=== PATIENT | female | born 1995 | race Hispanic/Latino ===

== ENCOUNTER 2017-07-15 22:24 | Outpatient (CLI) | payer BC, MEDICAID ==
[2017-07-15 22:57] VITALS: BP 137/88
== END 2017-07-15 23:26 | disposition home or self-care (01) ==
LOC: TRG 22:24
PROVIDERS: ATTEND Obstetrics & Gynecology
DX: O99.333 Smoking (tobacco) complicating pregnancy, third trimester (principal); O47.1 False labor at or after 37 completed weeks of gestation; Z3A.38 38 weeks gestation of pregnancy
CPT/HCPCS: 59025

== ENCOUNTER 2017-07-25 17:35 | Outpatient (CLI) | payer BC, MEDICAID ==
--- NOTE | 2017-07-25 20:59 | Ultrasound Report ---
FINAL REPORT PROCEDURE: US OB LIMITED TECHNIQUE: Real-time limited sonographic examination was performed for evaluation of position, heartbeat, fluid volume for fetus with image documentation. CPT 67682 HISTORY: Leaking fluid. COMPARISON: No prior studies are available for comparison. FINDINGS: MATERNAL LMP: 10/18/2016. Clinical age: 40 weeks 0 days. NATALEE of 07/25/2017. Uterus: Within normal limits . Cervix length: Not measured by technologist. FETUS IUP: Single living intrauterine . Position: Cephalic. Amniotic fluid volume: 17.3 cm. Heart rate and rhythm: 156 BPM, Regular . anatomic survey: Normal . IMPRESSION: Limited obstetric ultrasound. Single intrauterine in cephalic presentation. heart rate 156 beats per minute. Normal RAFAEL at 17.3 cm.
== END 2017-07-25 18:55 | disposition home or self-care (01) ==
LOC: TRG 17:35
PROVIDERS: ATTEND Obstetrics & Gynecology
DX: O47.1 False labor at or after 37 completed weeks of gestation (principal); Z3A.40 40 weeks gestation of pregnancy
CPT/HCPCS: 76815

== ENCOUNTER 2017-07-26 03:13 | Inpatient (IN) | payer BC, MEDICAID ==
[2017-07-26] MEDS ORDERED: BRETHINE SUB-Q PRN (03:25)
[2017-07-26] MEDS ORDERED: ePHEDrine SULFATE IV PRN (03:25)
[2017-07-26] MEDS ORDERED: BRETHINE IVP PRN (03:25)
[2017-07-26] MEDS ORDERED: MINERAL OIL PO PRN (03:25)
[2017-07-26] MEDS ORDERED: XYLOCAINE 2% INFILTRATI ONE (03:25)
[2017-07-26] MEDS ORDERED: SUBLIMAZE IV PRN (03:25)
[2017-07-26 03:59] LABS: Hematocrit 35.4 % (30.3-42.9); Hemoglobin 11.5 gm/dl (10.1-14.3); Mean Corpuscular HGB Conc 33 % (30-34); Mean Corpuscular Hemoglobin 28 pg (28-32); Mean Corpuscular Volume 85 fl (79-97); Platelet Count 167 K/mm3 (140-440); Red Blood Count 4.16 M/mm3 (3.65-5.03); Red Cell Distribution Width 13.4 % (13.2-15.2)
[2017-07-26] MEDS ORDERED: PITOCin/NS 20 UNIT/1000ML DRIP 20 UNITS/1,000 ML BAG IV SCH ×2 (04:00→18:29)
[2017-07-26] MEDS ORDERED: NARCAN 0.4 MG/1 ML IV PRN (05:45)
[2017-07-26] MEDS ORDERED: ZOFRAN IV PRN (05:45)
[2017-07-26] MEDS ORDERED: PHENERGAN PR PRN (05:45)
[2017-07-26] MEDS ORDERED: PHENERGAN PO PRN ×2 (05:45→18:29)
[2017-07-26] MEDS ORDERED: SODIUM CHLORIDE FLUSH SYRINGE 10 ML IV NR ×2 (06:00→18:29)
[2017-07-26] MEDS ORDERED: fentaNYL-BUPIV 2 MCG/ML-0.125% 200 MCG/100 ML BAG EPIDURAL SCH (06:00)
[2017-07-26] MEDS: LACTATED RINGERS 1,000 ML IV SCH ×2 (06:55→14:02)
--- NOTE | 2017-07-26 07:08 | History and Physical Report ---
History of Present Illness Date of examination: 07/26/17 Date of admission: 07/26/17 03:30 Chief complaint: pt presents c/o SROM History of present illness: Pt c/o SROM at 0215 today. Found to be grossly ruptured with clear fluid and 3cm dilated. Pt admitted for delivery. EDC Confirmation: 07/25/2017 Gestational Age: 8 weeks Past History : 1 Term Births: 0 Premature Births: 0 Living Children: 0 Para: 0 Mult. Births: 0 Prev : 0 Prev. attempt? 0 Aborta: 0 Elect. Ab: 0 Spont. Ab: 0 Ectopics: 0 Past Medical History: Reviewed history from 06/06/2013 and no changes required: Negative Past Medical History Past Surgical History: Reviewed history from 06/06/2013 and no changes required: Left forearm Family History Summary: Reviewed history Last on 11/05/2015 and no changes required:12/13/2016 General Comments - FH: Family History of Coronary Heart Disease Social History: 1st sexual activity age 14yo Smoking History: Patient currently smokes every day. Patient is Risk Factors: Smoked Tobacco Use: Former smoker Cigarettes: Yes Year quit: 2017 Years Since Last Quit: 0 Counseled to quit/cut down: yes Drug use: no Alcohol use: no Dietary Counseling: pn yes Past Medical History Abnormal PAP: negative Uterine Anomaly: negative Social Hx: 1st sexual activity age 14yo Smoking History: Patient currently smokes every day. Patient is Genetic History Congenital Heart Defect: Mom: no Dad: no Kathy Disease: Mom: no Dad: no Thalassemia Mom: no Dad: no Neural Tube Defect Mom: no Dad: no Down's Syndrome Mom: no Dad: no Jona-Sachs Mom: no Dad: no Sickle Cell Disease/Trait Mom: no Dad: no Hemophilia Mom: no Dad: no Muscular Dystrophy Mom: no Dad: no Cystic Fibrosis Mom: no Dad: no Jevon Chorea Mom: no Dad: no Mental Retardation Mom: no Dad: no Fragile X Mom: no Dad: no Other Genetic/Chromosomal Disorder Mom: no Dad: no Child w/other defect Mom: no Dad: no Enviromental Exposures Xray Exposure: no Medication, drug, or alcohol use since LMP: no Chemical/Other Exposure: no Exposure to Cat Liter: no Hx of Parvovirus (Fifth Disease): no Active Medications (reviewed today): LO LOESTRIN 1/10 (NORETHIN RAJESH-ETH ESTRAD-FE TABS) () 1 po qd LO LOESTRIN FE 1 MG-10 MCG / 10 MCG ORAL TABLET (NORETHIN-ETH ESTRAD-FE BIPHAS) 1 po q day as directed Current Allergies (reviewed today): No known allergies Past History Past Medical History: other (see hpi) Past Surgical History: other (see hpi) 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: other (see hpi) Family/Genetic History: other (see hpi) - Obstetrical History Expected Date of Delivery: 07/25/17 Actual Gestation: 40 Week(s) 1 Day(s) : 1 Medications and Allergies Allergies Allergy/AdvReac Type Severity Reaction Status Date / Time No Known Allergies Allergy Unverified 07/15/17 22:50 Home Medications Medication Instructions Recorded Confirmed Last Taken Type Pnv 29-1 Tablet 1 tab PO DAILY 07/15/17 07/15/17 07/14/17 21:00 History Active Meds: Active Medications Ephedrine Sulfate (Ephedrine Sulfate) 10 mg IV Q2M PRN PRN Reason: Hypotension Fentanyl (Sublimaze) 100 mcg IV Q2H PRN PRN Reason: Labor Pain Last Admin: 07/26/17 03:50 Dose: 100 mcg Lactated Ringer's (Lactated Ringers) 1,000 mls @ 125 mls/hr IV DIRECT MELODY Oxytocin/Sodium Chloride (Pitocin/Ns 20 Unit/1000ml Drip) 20 units in 1,000 mls @ 125 mls/hr IV DIRECT MELODY Fentanyl/Bupivacaine/Sodium Chlor (Fentanyl-Bupiv 2 Mcg/Ml-0.125%) 200 mcg in 100 mls @ 8 mls/hr EPIDURAL TITRATE MELODY; Protocol Mineral Oil (Mineral Oil) 30 ml PO QHS PRN PRN Reason: Constipation Naloxone HCl (Narcan 0.4 Mg/1 Ml) 0.2 mg IV Q2MIN PRN PRN Reason: Res Rate </= 8 or 02 SAT < 92% Ondansetron HCl (Zofran) 4 mg IV Q8H PRN PRN Reason: Nausea And Vomiting Promethazine HCl (Phenergan) 25 mg PO Q6H PRN PRN Reason: Nausea And Vomiting Promethazine HCl (Phenergan) 25 mg NH Q6H PRN PRN Reason: Nausea And Vomiting Sodium Chloride (Sodium Chloride Flush Syringe 10 Ml) 10 ml IV PRN NR Stop: 07/27/17 05:59 Terbutaline Sulfate (Brethine) 0.25 mg SUB-Q ONCE PRN PRN Reason: Hyperstimulation/Hypertonicity Terbutaline Sulfate (Brethine) 0.25 mg IVP ONCE PRN PRN Reason: Hyperstimulation/Hypertonicity Review of Systems All systems: negative - Vital Signs Vital signs: Vital Signs Resp 22 07/26/17 03:50 Temp Pulse Resp BP Pulse Ox 99.0 F 18 07/26/17 05:47 07/26/17 05:47 - Physical Exam Cervix: Positive: other (clear fluid and 3.5/100/-2 as per RN Exam) - Obstetrical FHR: category 1 Results Result Diagrams: 07/26/17 03:30 Abnormal lab results 07/26/17 Range/Units 03:30 WBC 12.0 H (4.5-11.0) K/mm3 All other labs normal. Assessment and Plan - Patient Problems (1) 40 weeks gestation of Current Visit: Yes Status: Acute (2) SROM (spontaneous rupture of membranes) Current Visit: Yes Status: Acute Plan to address problem: -will add pitocin at this time if needed -anticipate
--- NOTE | 2017-07-26 07:52 | Progress Note ---
Assessment and Plan Patient comfortable with epidural, head well applied to cervix. Discussed expectations of labor and delivery. Will continue current management, pitocin PRN for augmentation. - Patient Problems (1) 40 weeks gestation of Current Visit: Yes Status: Acute (2) SROM (spontaneous rupture of membranes) Current Visit: Yes Status: Acute Subjective - Subjective Date of service: 07/26/17 Principal diagnosis: IUP @ 40+1, labor, SROM Patient reports: no new complaints (comfortable with epidural) Objective - Vital Signs Vital Signs: Vital Signs - 12hr 07/26/17 07/26/17 07/26/17 03:50 03:55 04:20 Temperature 98.0 F Pulse Rate Respiratory 22 22 Rate Blood Pressure [Right] 07/26/17 07/26/17 07/26/17 05:47 05:51 06:05 Temperature 99.0 F Pulse Rate 95 H 80 Respiratory 18 Rate Blood Pressure 112/53 121/53 95/49 [Right] 07/26/17 07/26/17 06:48 07:42 Temperature Pulse Rate 96 H 102 H Respiratory Rate Blood Pressure 113/56 125/61 [Right] - Exam Breasts: normal Cardiovascular: Regular rate Lungs: Clear to auscultation, Normal air movement Abdomen: Present: normal appearance, soft Vulva: both: normal Uterus: Present: normal FHR: auscultation normal, category 1 Uterine Contraction Monitor Mode: External Cervical Dilatation: 6 Cervical Effacement Percentage: 80 station: -1 Uterine Contraction Frequency (min): 2-3 Uterine Contraction Duration: 60 Uterine Contraction Pattern: Regular Uterine Tone Measurement Phase: Contraction Uterine Contraction Intensity: Moderate Extremities: normal Deep Tendon Reflex Grade: Normal +2 - Labs Labs: Abnormal Labs 07/26/17 03:30 WBC 12.0 H Laboratory Results - last 24 hr 07/26/17 03:30 WBC 12.0 H RBC 4.16 Hgb 11.5 Hct 35.4 MCV 85 MCH 28 MCHC 33 RDW 13.4 Plt Count 167
[2017-07-26] MEDS ORDERED: PITOCin/NS 30 UNIT/500ML 30 UNITS/500 ML BAG IV SCH (08:00)
--- NOTE | 2017-07-26 12:38 | Progress Note ---
Assessment and Plan patient doing well, head +2 but still approx 7cms of cervix all the way around. Placed in LLP with right leg placed in stirrup. Anticipate shortly - Patient Problems (1) 40 weeks gestation of Current Visit: Yes Status: Acute (2) SROM (spontaneous rupture of membranes) Current Visit: Yes Status: Acute Subjective - Subjective Date of service: 07/26/17 Principal diagnosis: IUP @ 40+1, labor, SROM Patient reports: new complaints (rectal pressure) Objective - Vital Signs Vital Signs: Vital Signs - 12hr 07/26/17 07/26/17 07/26/17 03:50 03:55 04:20 Temperature 98.0 F Pulse Rate Respiratory 22 22 Rate Blood Pressure [Right] O2 Sat by Pulse Oximetry 07/26/17 07/26/17 07/26/17 05:47 05:51 06:05 Temperature 99.0 F Pulse Rate 95 H 80 Respiratory 18 Rate Blood Pressure 112/53 121/53 95/49 [Right] O2 Sat by Pulse Oximetry 07/26/17 07/26/17 07/26/17 06:48 07:42 08:04 Temperature 99.5 F Pulse Rate 96 H 102 H 85 Respiratory 18 Rate Blood Pressure 113/56 125/61 106/63 [Right] O2 Sat by Pulse 98 Oximetry - Exam Breasts: normal Cardiovascular: Regular rate Lungs: Clear to auscultation Abdomen: Present: normal appearance, soft Vulva: both: normal Uterus: Present: normal FHR: auscultation normal, category 1 Uterine Contraction Monitor Mode: External Cervical Dilatation: 7 Cervical Effacement Percentage: 90 station: +2 Uterine Contraction Frequency (min): 2-3 Uterine Contraction Duration: 60 Uterine Contraction Pattern: Regular Uterine Tone Measurement Phase: Contraction Uterine Contraction Intensity: Strong/Firm Extremities: normal - Labs Labs: Abnormal Labs 07/26/17 03:30 WBC 12.0 H Laboratory Results - last 24 hr 07/26/17 07/26/17 03:30 03:30 WBC 12.0 H RBC 4.16 Hgb 11.5 Hct 35.4 MCV 85 MCH 28 MCHC 33 RDW 13.4 Plt Count 167 Blood Type A POSITIVE Antibody Screen Negative
--- NOTE | 2017-07-26 15:47 | Procedure Note ---
OB Delivery Note - Delivery Date of Delivery: 07/26/17 Mud Worker: DONI REYNA Estimated blood loss: 200cc - Vaginal Delivery presentation: vertex Delivery position: OA Intrapartum events: PROM->1hr before delivery Delivery induction: none Delivery augmentation: rupture of membranes, pitocin Delivery monitor: external uterine Route of delivery: Delivery placenta: spontaneous Delivery cord: nuchal cord, 3 umbilical vessels Episiotomy: none Delivery laceration: other (abrasions, left labial - not repaired) Anesthesia: epidural Delivery comments: male del over intact perineum, placed skin to skin, 3 vessel cord clamped and cut. placenta del intact and complete. pit to IVF. several small vaginal abrasions hemostatic, left labial laceration noted repaired. GARNISHMENT SPECIALIST called to assess infant d/t poor tone and cry effort. EBL 200, apgars 7/9. mother and remain LDR stable. - A Infant Gender: Male
[2017-07-26] MEDS ORDERED: TYLENOL PO PRN (18:29)
[2017-07-26] MEDS ORDERED: BENADRYL PO PRN (18:29)
[2017-07-26] MEDS ORDERED: LANSINOH TP PRN (18:29)
[2017-07-26] MEDS ORDERED: TUCKS PAD TP PRN (18:29)
[2017-07-26] MEDS ORDERED: DULCOLAX PR PRN (18:29)
[2017-07-26] MEDS ORDERED: MILK OF MAGNESIA PO PRN (18:29)
[2017-07-26] MEDS ORDERED: DERMOPLAST TP PRN (18:29)
[2017-07-26] MEDS ORDERED: MOTRIN PO SCH (18:29)
[2017-07-27] MEDS: COLACE PO SCH ×2 (00:23→21:19)
[2017-07-27] MEDS: FEOSOL PO SCH ×2 (00:23→21:19)
[2017-07-27 04:21] LABS: Hematocrit 31.6 % (30.3-42.9); Hemoglobin 10.5 gm/dl (10.1-14.3)
--- NOTE | 2017-07-27 09:50 | Discharge Summary ---
Providers - Providers Date of Admission: 07/26/17 03:30 Date of discharge: 07/27/17 Attending physician: MACI DIAZ 07/26/17 18:29 Consult to Ice Cutter [CONS] Routine Reason For Exam: assistance with , SNS Primary care physician: MACI DIAZ Hospitalization Reason for admission: active labor Delivery: Episiotomy: none Laceration: none Other procedures: none complications: none Discharge diagnosis: IUP at term delivered baby: male Hospital course: Patient was admitted underwent a normal spontaneous vaginal delivery. Her course was benign. She was afebrile throughout her stay. Her day 1 hematocrit was 31.6%. Patient is breast-feeding and bottlefeeding and desires use oral contraceptives for control. Patient desires discharge today. Condition at discharge: Good Disposition: DC-01 TO HOME OR SELFCARE - Discharge Diagnoses (1) (normal spontaneous vaginal delivery) Status: Resolved (2) 40 weeks gestation of Status: Resolved (3) SROM (spontaneous rupture of membranes) Status: Resolved Plan - Discharge Medications Prescriptions: Lidocain2.5%/Prilocai2.5% [Emla] 5 gm TP ONCE #1 tube - Provider Discharge Summary Activity: routine, no sex for 6 weeks Diet: routine Instructions: routine Additional instructions: [] Smoking cessation referral if applicable(refer to patient education folder for contact #) [] Refer to [facility] Booklet Call your doctor immediately for: * Fever > 100.5 * Heavy vaginal bleeding ( >1 pad per hour) * Severe persistent headache * Shortness of breath * Reddened, hot, painful area to leg or breast * Drainage or odor from incision. * Keep incision clean and dry at all times and follow doctor's instructions regarding bathing/showering Patient is to call to schedule a circumcision for her son and follow up in our office in 6 weeks. - Follow up plan Follow up: MACI DIAZ MD [Primary Care Provider] - 7 Days
[2017-07-27] MEDS ORDERED: PRENATAL VITAMIN PO SCH (10:00)
[2017-07-28] MEDS ORDERED: BOOSTRIX IM ONE (06:00)
[2017-07-28 18:40] VITALS: BP 104/64
== END 2017-07-28 16:00 | disposition home or self-care (01) | DRG 775 ==
LOC: TRG 03:13 → LD 03:30 → OB 18:43
PROVIDERS: ADMIT Obstetrics & Gynecology; ATTEND Obstetrics & Gynecology
PROC: 10E0XZZ Delivery of Products of Conception, External Approach (ICD-10-PCS; principal; 2017-07-26)
PROC: 0UQMXZZ Repair Vulva, External Approach (ICD-10-PCS; 2017-07-26)
PROC: 3E0R3BZ Introduction of Anesthetic Agent into Spinal Canal, Percutaneous Approach (ICD-10-PCS; 2017-07-26)
PROC: 00HU33Z Insertion of Infusion Device into Spinal Canal, Percutaneous Approach (ICD-10-PCS; 2017-07-26)
DX: O42.92 Full-term premature rupture of membranes, unspecified as to length of time between rupture and onset of labor (principal); Z3A.40 40 weeks gestation of pregnancy; Z37.0 Single live birth; Z82.49 Family history of ischemic heart disease and other diseases of the circulatory system; O99.334 Smoking (tobacco) complicating childbirth; F17.210 Nicotine dependence, cigarettes, uncomplicated; O69.81X0 Labor and delivery complicated by cord around neck, without compression, not applicable or unspecified; O70.0 First degree perineal laceration during delivery
CPT/HCPCS: 36415; 85014; 85018; 85027; 86592; 86850; 86900; 86901; 90471; 90715; 99211; A6250; G0463; J2590; J3010; J7120

== ENCOUNTER 2020-09-27 01:50 | Inpatient (IN) | payer OTHER ==
[2020-09-27] MEDS ORDERED: BUTORPHANOL 2 MG/1 ML INJ IV PRN (02:33)
[2020-09-27] MEDS ORDERED: LOPERAMIDE 2 MG CAP PO PRN (02:33)
[2020-09-27] MEDS ORDERED: OXYTOCIN 10 UNIT/1 ML INJ IM PRN (02:33)
[2020-09-27] MEDS ORDERED: ONDANSETRON 4 MG/2 ML INJ IV PRN ×2 (02:33→15:44)
[2020-09-27] MEDS ORDERED: miSOPROStol 200 MCG TAB PR PRN (02:33)
[2020-09-27] MEDS ORDERED: LIDOCAINE (2%) 20 MG/1 ML VIAL 20 ML MDV INFILTRATI ONE (02:33)
[2020-09-27] MEDS ORDERED: TERBUTALINE 1 MG/1 ML INJ SUB-Q PRN (02:33)
[2020-09-27] MEDS ORDERED: METHYLERGONOVINE MALEATE 0.2 MG/ML VIAL IM PRN (02:33)
[2020-09-27] MEDS ORDERED: fentaNYL 100 MCG/2 ML INJ IV PRN (02:33)
[2020-09-27] MEDS ORDERED: ACETAMINOPHEN 325 MG TAB PO PRN (02:33)
[2020-09-27] MEDS ORDERED: CARBOPROST TROMETHAMINE 250 MCG/1 ML INJ IM PRN (02:33)
[2020-09-27] MEDS ORDERED: MINERAL OIL 30 ML ORAL LIQD PO PRN (02:33)
[2020-09-27] MEDS ORDERED: ePHEDrine SULFATE 50 MG/1 ML INJ IV PRN ×2 (02:33→07:00)
[2020-09-27] MEDS ORDERED: OXYTOCIN DRIP 30 UNITS/500 ML BAG IV SCH (03:00)
[2020-09-27] MEDS: LACTATED RINGERS 1,000 ML IV SCH ×2 (03:44→07:02)
[2020-09-27 03:45] LABS: Hematocrit 32.1 % (30.3-42.9); Hemoglobin 10.4 gm/dl (10.1-14.3); Mean Corpuscular HGB Conc 32 % (30-34); Mean Corpuscular Volume 77 fl (79-97); Platelet Count 196 K/mm3 (140-440); Red Blood Count 4.18 M/mm3 (3.65-5.03); Red Cell Distribution Width 16.9 % (13.2-15.2)
--- NOTE | 2020-09-27 04:16 | History and Physical Report ---
History of Present Illness Date of examination: 09/27/20 Date of admission: 09/27/20 02:33 Chief complaint: "my water broke" History of present illness: DC Confirmation: 10/12/2020 Past History : 2 Term Births: 1 Premature Births: 0 Living Children: 1 Para: 1 Mult. Births: 0 Prev : 0 Prev. attempt? 0 Aborta: 0 Elect. Ab: 0 Spont. Ab: 0 Ectopics: 0 # 1 Delivery date: 07/26/2017 Weeks Gestation: 40+1 Delivery type: Vaginal Anesthesia type: epidural Delivery location: [facility] Sex: male weight: 7.38 Name: Bhargav Comments: none Risk Factors: Smoked Tobacco Use: Former smoker Smokeless Tobacco Use: Never Counseled to quit/cut down: yes Passive smoke exposure: no HIV high-risk behavior: no Caffeine use: 1 drinks per day Alcohol use: no Seatbelt use: preg-counsellors % Sun Exposure: occasionally Family History Risk Factors: Family History of KS in females < 65 years old: no Dietary Counseling: pn yes Past Medical History: Reviewed history from 12/22/2017 and no changes required: Anxiety Hypothyroidism Past Surgical History: Reviewed history from 12/22/2017 and no changes required: negative Past Medical History Anesthesia Complications: negative Anemia: negative Autoimmune Disorder: negative Bleeding Disorder: negative Blood Transfusions: negative Breast Disease: negative Diabetes: negative Heart Disease: negative Hypertension: negative Hepatitis/Liver Disease: negative Kidney Disease/UTI: negative Neurologic/Epilepsy/Migraines: negative Phlebitis/Varicosities: negative Psychiatric: negative Pulmonary Disease/Asthma: negative Thyroid Disease: negative Hospitalizations: negative Surgery (Non-ecological risk assessor): negative Abnormal PAP: negative JOHN Exposure: negative Infertility: negative Uterine Anomaly: negative Uterine Surgery (not C/S): negative Other Gynecologic Problems: negative Social Hx: 1st sexual activity age 14yo Patient is Smoking History: Patient is a former smoker. Infection History Hx of STD: none HIV Risk Eval: no Hepatitis B Risk Eval: low risk Personal hx. of genital herpes: no Partner hx. of genital herpes: no Rash, Viral, or Febrile illness since last LMP? no Varicella/Chicken Pox Status: Previous Disease TB Risk: no Genetic History Congenital Heart Defect: Mom: no Dad: no Kathy Disease: Mom: no Dad: no Thalassemia Mom: no Dad: no Neural Tube Defect Mom: no Dad: no Down's Syndrome Mom: no Dad: no Jona-Sachs Mom: no Dad: no Sickle Cell Disease/Trait Mom: no Dad: no Hemophilia Mom: no Dad: no Muscular Dystrophy Mom: no Dad: no Cystic Fibrosis Mom: no Dad: no [place] Chorea Mom: no Dad: no Mental Retardation Mom: no Dad: no Fragile X Mom: no Dad: no Other Genetic/Chromosomal Disorder Mom: no Dad: no Child w/other defect Mom: no Dad: no Enviromental Exposures Enviromental Exposures Reviewed Xray Exposure: no Medication, drug, or alcohol use since LMP: no Chemical/Other Exposure: no Exposure to Cat Liter: no Hx of Parvovirus (Fifth Disease): no Occupational Exposure to Children: none Current Allergies: No known allergies Past History Past Medical History: other (see HPI) Past Surgical History: other (See HPI) 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) Family/Genetic History: other (see HPI) Social history: no significant social history - Obstetrical History Expected Date of Delivery: 10/12/20 Actual Gestation: 37 Week(s) 6 Day(s) : 2 Para: 1 Hx # Term Pregnancies: 1 Number of Pregnancies: 0 Spontaneous Abortions: 0 Induced : 0 Number of Living Children: 1 Medications and Allergies Allergies Allergy/AdvReac Type Severity Reaction Status Date / Time No Known Allergies Allergy Unverified 07/15/17 22:50 Home Medications Medication Instructions Recorded Confirmed Last Taken Type Pnv 29-1 Tablet 1 tab PO DAILY 07/15/17 07/26/17 07/25/17 23:30 History Lidocain2.5%/Prilocai2.5% [Emla] 5 gm TP ONCE #1 tube 07/27/17 Unknown Rx One Daily Tablet 09/27/20 Unknown History Active Meds: Active Medications Acetaminophen (Acetaminophen 325 Mg Tab) 650 mg PO Q4H PRN PRN Reason: Pain, Mild (1-3) Butorphanol Tartrate (Butorphanol 2 Mg/1 Ml Inj) 1 mg IV Q2H PRN PRN Reason: Pain, Moderate(4-6) LABOR PAIN Carboprost Tromethamine (Carboprost Tromethamine 250 Mcg/1 Ml Inj) 250 mcg IM ONCE PRN PRN Reason: Uterine Bleeding Ephedrine Sulfate (Ephedrine Sulfate 50 Mg/1 Ml Inj) 10 mg IV Q2M PRN PRN Reason: Hypotension Fentanyl (Fentanyl 100 Mcg/2 Ml Inj) 100 mcg IV Q2H PRN PRN Reason: Pain,Severe (7-10) LABOR PAIN Lactated Ringer's (Lactated Ringers) 1,000 mls @ 125 mls/hr IV DIRECT MELODY Last Admin: 09/27/20 03:44 Dose: 125 mls/hr Documented by: Oxytocin/Sodium Chloride (Pitocin/Ns 30 Unit/500ml) 30 units in 500 mls @ 40 mls/hr IV TITR MELODY; Protocol Loperamide HCl (Loperamide 2 Mg Cap) 2 mg PO ONCE PRN PRN Reason: give with Hemabate Methylergonovine Maleate (Methylergonovine Maleate 0.2 Mg/Ml Vial) 0.2 mg IM ONCE PRN PRN Reason: Uterine Bleeding Mineral Oil (Mineral Oil 30 Ml Oral Liqd) 30 ml PO QHS PRN PRN Reason: Constipation Misoprostol (Misoprostol 200 Mcg Tab) 800 mcg [place] ONCE PRN PRN Reason: Uterine Bleeding Ondansetron HCl (Ondansetron 4 Mg/2 Ml Inj) 4 mg IV Q8H PRN PRN Reason: Nausea And Vomiting Oxytocin (Oxytocin 10 Unit/1 Ml Inj) 10 unit IM ONCE PRN PRN Reason: Uterine Bleeding Terbutaline Sulfate (Terbutaline 1 Mg/1 Ml Inj) 0.25 mg SUB-Q ONCE PRN PRN Reason: Hyperstimulation/Hypertonicity Review of Systems All systems: negative - Vital Signs Vital signs: Vital Signs Pulse BP 96 H 108/79 09/27/20 02:08 09/27/20 02:08 Temp Pulse Resp BP Pulse Ox 97.8 F 92 H 18 100/58 98 09/27/20 03:31 09/27/20 04:13 09/27/20 03:31 09/27/20 03:33 09/27/20 04:13 - Physical Exam Breasts: Positive: normal Cardiovascular: Regular rate Lungs: Positive: Normal air movement Abdomen: Positive: normal appearance, soft Genitourinary (Female): Positive: normal external genitalia, normal perenium Vagina: Positive: normal moisture Uterus: Positive: normal size Anus/Rectum: Positive: normal perianal skin Extremities: Positive: normal - Obstetrical FHR: category 1 Uterine Contraction Monitor Mode: External Cervical Dilatation: 2 (per turntable worker exam) Uterine Contraction Pattern: Regular Uterine Tone Measurement Phase: Contraction Results Result Diagrams: 09/27/20 03:27 Abnormal lab results 09/27/20 Range/Units 03:27 WBC 11.4 H (4.5-11.0) K/mm3 MCV 77 L (79-97) fl MCH 25 L (28-32) pg RDW 16.9 H (13.2-15.2) % All other labs normal. Assessment and Plan 24y/o @ 37+6 admitted for SROM. GBS neg. Admission orders in EMR, anticipate . - Patient Problems (1) SROM (spontaneous rupture of membranes) Current Visit: No Status: Resolved (2) 37 weeks gestation of Current Visit: Yes Status: Acute (3) Anxiety Current Visit: Yes Status: Acute (4) Hypothyroid Current Visit: Yes Status: Acute (5) False positive HIV serology Current Visit: Yes Status: Acute
--- NOTE | 2020-09-27 06:48 | Anesthesia Consultation ---
Anesthesia Consult and Med Hx Date of service: 09/27/20 - Airway Anesthetic Teeth Evaluation: Good ROM Head & Neck: Adequate Mental/Hyoid Distance: Adequate Mallampati Class: Class II Intubation Access Assessment: Probably Good - Pulmonary Exam CTA: Yes - Cardiac Exam Cardiac Exam: RRR - Pre-Operative Health Status ASA Pre-Surgery Classification: ASA2 Proposed Anesthetic Plan: Epidural - Pulmonary Hx Asthma: No COPD: No Hx Pneumonia: No - Cardiovascular System Hx Hypertension: No - Central Nervous System Hx Seizures: No Hx Psychiatric Problems: No - Endocrine Hx Renal Disease: No Hx End Stage Renal Disease: No Hx Hypothyroidism: Yes (on levothyrozine) Hx Hyperthyroidism: No - Hematic Hx Anemia: No Hx Sickle Cell Disease: No - Other Systems Hx Alcohol Use: No
[2020-09-27] MEDS ORDERED: fentaNYL-BUPIV 2 MCG/ML-0.125% 200 MCG/100 ML BAG EPIDURAL SCH (07:00)
[2020-09-27] MEDS ORDERED: NALOXONE 2 MG/2 ML INJ IV PRN (07:00)
--- NOTE | 2020-09-27 07:25 | Progress Note ---
Labor Epidural - Labor Epidural Start Time: 07:01 Stop Time: 07:08 Performed by:: CURTIS MIX Procedure: Patient is requesting epidural for labor pain. H&P, and labs reviewed. Procedure explained, questions answered, consent obtained. Patient in sitting position with blood pressure cuff and pulse ox on and working. Timeout performed immediately before start of procedure. Sterile chlorahexadine 0.5% prep/drape. 3 mL 1% lidocaine skin wheal at L[3]-L[4]. 18-gauge [email or web address] epidural needle advanced to [id number] with saline at 5 cm. Epidural catheter advanced to 11 cm, negative aspiration for blood and csf, negative test dose 3 ml 1.5% lidocaine with epinephrine. Epidural dexmedetomidine [30] mcg administered. Sterile steri-strips and tegaderm applied, followed by tape reinforcement. Patient tolerated procedure well. Kina ARMENTA
--- NOTE | 2020-09-27 09:44 | Event Note ---
Date: 09/27/20 pt resting comfortably s/p epidural. SVE by nurse 7-8cms, pt reports feeling occasional rectal pressure. anticipate .
--- NOTE | 2020-09-27 13:59 | Procedure Note ---
OB Delivery Note - Delivery Date of Delivery: 09/27/20 Sludge Mill Operator: DONI REYNA (Salomón LYONS) Estimated blood loss: <100cc - Vaginal Delivery presentation: vertex Delivery position: OA (CHERELLE) Intrapartum events: PROM->1hr before delivery Delivery induction: none Delivery monitor: external FHT, external uterine Route of delivery: Delivery placenta: spontaneous Delivery cord: 3 umbilical vessels Episiotomy: none Delivery laceration: none Anesthesia: epidural Delivery comments: female baby birthed over intact perineum, placed on mother's abdomen for skin to skin. 3 vessel cord clamped and cut. placenta delivered intact and complete. no lacs to repair. all counts correct. mother and baby LDR stable. - Infant A at 1 minute: 8 at 5 minutes: 9 Infant Gender: Female
[2020-09-27] MEDS ORDERED: WITCH HAZEL/ GLYCERIN PAD TP PRN (15:44)
[2020-09-27] MEDS ORDERED: PROMETHAZINE 25 MG TAB PO PRN (15:44)
[2020-09-27] MEDS ORDERED: diphenhydrAMINE 25 MG CAP PO PRN (15:44)
[2020-09-27] MEDS ORDERED: LANOLIN/ZINC/DIMETHICONE (LANSINOH) 7 GM TP PRN ×2 (15:44)
[2020-09-27] MEDS ORDERED: MAGNESIUM HYDROXIDE (MOM) ORAL LIQD UDC PO PRN (15:44)
[2020-09-27] MEDS ORDERED: BENZOCAINE/MENTHOL 20/0.5% TOP SPRAY 56 GM TP PRN (15:44)
[2020-09-27] MEDS: IBUPROFEN 800 MG TAB PO SCH ×2 (16:03→22:06)
[2020-09-28 02:21] LABS: Hematocrit 27.8 % (30.3-42.9)
[2020-09-28] MEDS ORDERED: LEVOTHYROXINE 150 MCG TAB PO SCH (06:00)
--- NOTE | 2020-09-28 06:36 | Discharge Summary ---
Providers - Providers Date of Admission: 09/27/20 02:33 Date of discharge: 09/28/20 (pt agrees with d/c) Attending physician: SUMA MARINELLI 09/27/20 15:44 Consult to Seed Technician [CONS] Routine Reason For Exam: assistance with , SNS Primary care physician: SUMA MARINELLI Hospitalization Reason for admission: active labor, IUP at term Delivery: Episiotomy: none Laceration: none Incision: normal Other procedures: none complications: none Discharge diagnosis: IUP at term delivered [place] baby: female Hospital course: uncomplicated vaginal delivery Pt awake caring for NB. No c/o voiced VSS FF below umb Lochia small Perineum intact. H&H 11/16 drop r/t blood loss from delivery RX [id number] and Colace for d/c Pt is asymptomatic. Doing well s/p vag delivery. P: d/c today with instructions RTO 4 weeks PP Care RX on chart Condition at discharge: Good Disposition: [id number] TO HOME OR SELFCARE - Discharge Diagnoses (1) (normal spontaneous vaginal delivery) Status: Resolved Comment: RTO 4 weeks PP Care Plan - Discharge Medications Prescriptions: Docusate Sodium [Colace] 100 mg PO BID PRN #60 capsule PRN Reason: Constipation Ferrous Sulfate [Feosol 325 MG tab] 325 mg PO BID #60 tablet Ibuprofen [Motrin 800 MG tab] 800 mg PO TID PRN #30 tablet PRN Reason: Pain - Provider Discharge Summary Activity: routine, no sex for 6 weeks, no heavy lifting 4 weeks, no strenuous exercise Diet: other (increase foods rich in Iron) Instructions: routine Additional instructions: [] Smoking cessation referral if applicable(refer to patient education folder for contact #) [] Refer to [facility] Booklet Call your doctor immediately for: * Fever > 100.5 * Heavy vaginal bleeding ( >1 pad per hour) * Severe persistent headache * Shortness of breath * Reddened, hot, painful area to leg or breast * Drainage or odor from incision. * Keep incision clean and dry at all times and follow doctor's instructions regarding bathing/showering - Follow up plan Follow up: SUMA MARINELLI MD [Primary Care Provider] - 10/28/20 (Congratulations! Please call [phone] to schedule your visit in 4 weeks. Take medications as prescribed. Call with any concerns.)
[2020-09-28] MEDS ORDERED: PRENATAL VIT27-FE FUMARATE-FOLIC ACID VIT TAB PO SCH (10:00)
[2020-09-28] MEDS: IBUPROFEN 800 MG TAB PO SCH (10:36)
--- NOTE | 2020-09-28 15:07 | Post Anesthesia Evaluation ---
- Post Anesthesia Evaluation Patient Participated: Yes Airway Patent: Yes Stable Respiratory Function: Yes Nausea/Vomiting: No Temp > 96.8F: Yes Pain Manageable: Yes Adequeate Hydration: Yes Anesthesia Complications: No Block Receding Appropriately: Yes
[2020-09-28 16:42] VITALS: BP 110/72
== END 2020-09-28 16:30 | disposition home or self-care (01) | DRG 807 ==
LOC: TRG 01:50 → APU 02:01 → TRG 02:33 → LD 02:33 → OB 15:41
PROVIDERS: ADMIT Obstetrics & Gynecology; ATTEND Obstetrics & Gynecology
PROC: 10E0XZZ Delivery of Products of Conception, External Approach (ICD-10-PCS; principal; 2020-09-27)
PROC: 3E0R3BZ Introduction of Anesthetic Agent into Spinal Canal, Percutaneous Approach (ICD-10-PCS; 2020-09-27)
PROC: 00HU33Z Insertion of Infusion Device into Spinal Canal, Percutaneous Approach (ICD-10-PCS; 2020-09-27)
DX: O42.02 Full-term premature rupture of membranes, onset of labor within 24 hours of rupture (principal); Z37.0 Single live birth; Z3A.37 37 weeks gestation of pregnancy; Z87.891 Personal history of nicotine dependence; O99.344 Other mental disorders complicating childbirth; O99.284 Endocrine, nutritional and metabolic diseases complicating childbirth; E03.9 Hypothyroidism, unspecified; Z20.822 Contact with and (suspected) exposure to COVID-19; F41.9 Anxiety disorder, unspecified
CPT/HCPCS: 36415; 59025; 85014; 85018; 85027; 86592; 86850; 86900; 86901; G0378; J7120; U0003